=== PATIENT | female | born 1965 ===

== ENCOUNTER 2017-03-23 06:47 | Day surgery (SDC) | payer OTHER ==
[2017-03-23] MEDS ORDERED: Propofol 10 mg/ml Inj (20 ML) ONE (08:06)
--- NOTE | 2017-03-23 08:21 | CP.SDSHP ---
Same Day Surgery H & P - History Proposed Procedure: colonoscopy Pre-Op Diagnosis: diverticulitits - Previous Medical/Surgical History Cardiac: Arrhythmia, Other (hyperlipidemia, ) Endocrine/Metabolic: Obesity Misc: Other (RA, Fibromyalgia) Previous Surgical History: appendix. tubal ligation - Allergies Allergies: Allergies No Known Allergies Allergy (Verified 03/23/17 07:05) - Physical Exam Vital Signs: Vital Signs 03/23/17 07:00 Temperature 97 F L Pulse Rate 79 Respiratory 19 Rate Blood Pressure 104/65 O2 Sat by Pulse 99 Oximetry Mental Status: Alert & Oriented x3 Neuro: WNL Heart: WNL Lungs: WNL GI: WNL - Impression Impression: diverticulitis, continued pain after resolution Pt. Evaluated Today:Candidate for Anesthesia & Procedure: Yes - Date & Time Date: 03/23/17 Time: 08:21 Short Stay Discharge - Short Stay Discharge Admitting Diagnosis/Reason for Visit: LEFT LOWER QUADRANT PAIN, DIVERTICULOSIS OF Disposition: HOME/ ROUTINE
[2017-03-23 11:39] VITALS: BP 109/67; PULSE 73; RESP 18; O2SAT 96
== END 2017-03-23 09:50 | disposition home or self-care (01) ==
LOC: C.ENDO 06:47
PROVIDERS: ATTEND Internal Medicine Gastroenterology
DX: R10.32 Left lower quadrant pain (principal); K57.30 Diverticulosis of large intestine without perforation or abscess without bleeding; E66.9 Obesity, unspecified; E78.5 Hyperlipidemia, unspecified; M06.9 Rheumatoid arthritis, unspecified; M79.7 Fibromyalgia; K64.1 Second degree hemorrhoids; K63.5 Polyp of colon; Z68.26 Body mass index [BMI] 26.0-26.9, adult
CPT/HCPCS: 45380; 84703; 88305; J2704

== ENCOUNTER 2018-06-02 15:29 | Outpatient (CLI) | payer OTHER | END 2018-06-02 15:30 | disposition home or self-care (01) | LOC: C.MAMMO 15:29 | DX: Z12.31 Encounter for screening mammogram for malignant neoplasm of breast (principal) ==